=== PATIENT | female | born 1940 | race Caucasian/White ===

== ENCOUNTER → 2019-12-31 | Outpatient (CLI) | payer OTHER ==
[~2019-12-31] MED LIST: ASPIR 8181 MG; ASPIR 8181 MG PO; BENADRYL25 MG PO; CALCIUM 500 +1 EAC5 PO; CO Q-10100 MG PO; DETROL2 M1; FLAX OIL1000 MG PO; FOLIC ACID 40400 MCG PO; GLUCOSAMINE HC500 MG PO; KLOR-CON 1010 MEQ PO; LASIX 40 MG TAB40 M2; LASIX 40 MG TAB40 M2 PO; MEGA BIOTIN10000 MCG PO; MIRALAX17 GM PO; MS CONTIN15 MG PO; NAPROSYN500 MG; REQUIP4 MG; REQUIP4 MG PO; ROBAXIN 750 MG750 M1 PO; SELENIMIN200 MCG PO; SYMBICORT160 MCG/4.; SYMBICORT160 MCG/4. INH; XANAX 0.25 MG0.25 MG PO; ZONEGRAN50 MG PO
== END ==
LOC: NUC 13:00
DX: M81.0 Age-related osteoporosis without current pathological fracture (principal); N91.2 Amenorrhea, unspecified; Z78.0 Asymptomatic menopausal state

== ENCOUNTER 2020-03-23 16:43 | Emergency (ER) | payer OTHER ==
[~2020-03-23] VITALS: Ht 152.4 cm; Wt 127.0 kg
[2020-03-23] MEDS ORDERED: KLOR-CON 10 ER10 MEQ PO (17:49)
[2020-03-23] MEDS ORDERED: ROPINIROLE HCL4 MG PO (17:49)
[2020-03-23] MEDS ORDERED: ALENDRONATE SOD70 MG PO (17:49)
[2020-03-23] MEDS ORDERED: ZONEGRAN100 MG PO (17:50)
[2020-03-23] MEDS ORDERED: PREDNISONE 10 M10 MG PO (17:57)
[2020-03-23] MEDS ORDERED: CYCLOBENZAPRINE5 MG PO (17:57)
[2020-03-23] MEDS ORDERED: NORCO 5-325 TA1 EAC2 PO (18:04)
[2020-03-23 18:33] VITALS: BP 109/52
== END 2020-03-23 18:34 | disposition home or self-care (01) ==
LOC: ER 16:43
DX: M54.42 Lumbago with sciatica, left side (principal); M43.15 Spondylolisthesis, thoracolumbar region; M19.90 Unspecified osteoarthritis, unspecified site; Z98.51 Tubal ligation status; Z79.82 Long term (current) use of aspirin; Z79.899 Other long term (current) drug therapy; Z87.891 Personal history of nicotine dependence